=== PATIENT | female | born 1945 | race Caucasian/White ===

== ENCOUNTER 2018-06-13 19:53 | Emergency (ER) | payer OTHER ==
[~2018-06-13] VITALS: Ht 162.6 cm; Wt 72.6 kg
== END 2018-06-13 22:29 | disposition home or self-care (01) ==
LOC: ER 19:53
DX: I16.0 Hypertensive urgency (principal); I10 Essential (primary) hypertension

== ENCOUNTER 2018-06-16 23:31 | Emergency (ER) | payer OTHER ==
[~2018-06-16] VITALS: Ht 157.5 cm; Wt 75.3 kg
[2018-06-17] MEDS ORDERED: NIFEDIPINE ER30 M1 PO (02:12)
== END 2018-06-17 02:12 | disposition home or self-care (01) ==
LOC: ER 23:31
DX: I10 Essential (primary) hypertension (principal)

== ENCOUNTER 2018-07-07 18:14 | Emergency (ER) | payer OTHER ==
[~2018-07-07] VITALS: Ht 157.5 cm; Wt 79.4 kg
[~2018-07-07 18:14] MED LIST: NIFEDIPINE ER30 M1 PO
== END 2018-07-07 20:47 | disposition home or self-care (01) ==
LOC: ER 18:14
DX: K43.9 Ventral hernia without obstruction or gangrene (principal)

== ENCOUNTER 2019-01-24 20:32 | Emergency (ER) | payer OTHER ==
[~2019-01-24] VITALS: Ht 157.5 cm; Wt 70.3 kg
[2019-01-24] MEDS ORDERED: SYNTHROID75 MCG (20:44)
== END 2019-01-24 22:53 | disposition home or self-care (01) ==
LOC: ER 20:32
DX: N39.0 Urinary tract infection, site not specified (principal)

== ENCOUNTER → 2019-07-16 | Emergency (ER) | payer OTHER ==
[~2019-07-16] MED LIST changes: +SYNTHROID75 MCG
== END | disposition left against medical advice (07) ==
LOC: ER 23:05
DX: Z53.20 Procedure and treatment not carried out because of patient's decision for unspecified reasons (principal)

== ENCOUNTER 2021-09-11 00:08 | Emergency (ER) | payer OTHER ==
[~2021-09-11] VITALS: Ht 157.5 cm; Wt 75.3 kg
== END 2021-09-11 09:30 | disposition left against medical advice (07) ==
LOC: ER 00:08
DX: R10.84 Generalized abdominal pain (principal); K43.9 Ventral hernia without obstruction or gangrene; K57.90 Diverticulosis of intestine, part unspecified, without perforation or abscess without bleeding; I10 Essential (primary) hypertension

== ENCOUNTER 2022-02-19 08:29 | Emergency (ER) | payer OTHER ==
[~2022-02-19] VITALS: Ht 162.6 cm; Wt 72.6 kg
[~2022-02-19 08:29] MED LIST changes: +BENADRYL25 MG; +MOTRIN IB200 M1 PO; +NORVASC5 MG PO; +PEPCID AC20 MG PO
== END 2022-02-19 13:04 | disposition home or self-care (01) ==
LOC: ER 08:29
DX: I82.409 Acute embolism and thrombosis of unspecified deep veins of unspecified lower extremity (principal); Z20.822 Contact with and (suspected) exposure to COVID-19; I10 Essential (primary) hypertension; E03.9 Hypothyroidism, unspecified

== ENCOUNTER 2022-04-12 11:28 | Outpatient (CLI) | payer OTHER | END 2022-04-12 11:31 | disposition home or self-care (01) | LOC: SONOGRAMA 11:28 | PROVIDERS: ATTEND Internal Medicine Endocrinology, Diabetes & Metabolism | DX: E04.9 Nontoxic goiter, unspecified (principal); E04.1 Nontoxic single thyroid nodule ==

== ENCOUNTER 2023-04-25 18:43 | Inpatient (IN) | payer OTHER ==
[~2023-04-25] VITALS: Ht 162.6 cm; Wt 68.0 kg
--- NOTE | 2023-04-25 19:13 | NUR ---
PTE ALERTA Y ORIENTADA X 3 ESFERAS QUIEN REFIERE SANGRADO RECTAL EXCESIVO DESDE HACE 2 HRS.PTE UTILIZANDO XARELTO.AL MOMENTO NIEGA OTROS SINTOMAS.
[2023-04-25] MEDS ORDERED: EVISTA60 MG (19:17)
[2023-04-25] MEDS ORDERED: CHLORTHALIDONE25 MG (19:17)
[2023-04-25] MEDS ORDERED: PRAVASTATIN SOD10 MG (19:17)
[2023-04-25] MEDS ORDERED: CILOSTAZOL50 MG (19:18)
[2023-04-25] MEDS ORDERED: XARELTO2.5 MG (19:18)
[2023-04-25] MEDS ORDERED: MELOXICAM5 MG (19:18)
--- NOTE | 2023-04-25 20:19 | NUR ---
PACIENTE EVALUADA POR SIM CAMACHO QUIEN ORDENA TRATAMIENTO. SE ORIENTA PACIENTE SOBRE TRATAMIENTO QUIEN REFIERE ENTENDER. SE CAROLA MUESTRAS DE LABORATORIO BAJO MEDIDAS ASEPTICAS. SE MANTIENE PACIENTE EN JENN BAJA, BARANDAS ELEVADAS POR PRECAUCION.
[2023-04-25 20:25] LABS: HEMATOCRIT 27.6 % (36.0-45.00); HEMOGLOBIN 8.8 g/dL (12.0-15.00); MEAN CELL VOLUME 96.7 fL (80.00-100.00); MEAN CORPUSCULAR HEMOGLOBIN 30.8 pg (27.00-32.0); PLATELET COUNT 184 K/uL (150-450); RED BLOOD COUNT 2.85 M/uL (4.00-6.00); RED CELL DISTRIBUTION WIDTH 15.1 % (11.5-14.5)
[2023-04-25 20:38] LABS: INR 1.03; PARTIAL THROMBOPLASTIN TIME 22.9 SECONDS (22.0-34.0); PROTHROMBIN TIME 10.8 SECONDS (9.0-11.5)
[2023-04-25 20:40] LABS: CALCIUM 8.6 mg/dL (8.5-10.1); CREATININE SERUM 2.4 mg/dL (0.55-1.02); GFR 19.47; POTASSIUM 5.33 mEq/L (3.5-5.1)
--- NOTE | 2023-04-25 23:38 | NUR ---
SE RECIBE PACIENTE ALERTA Y ORIENTADA X 3 ESFERAS EN CAMA EN COMPANIA DE FAMILIAR. PRESENTANDO BUEN PATRON RESPIRATORIO. RECIBIENDO IV'S 0.9NSS BAJANDO A 100ML/HR AREA DE VENOPUNCION MEGAN DE EDEMA Y ERITEMA. PENDIENTE CT ABDOMEN/PELVICO PO A LA 1AM. PENDIENTE RE-EVALUACION MEDICA.
--- NOTE | 2023-04-26 07:04 | NUR ---
SE RECIBE PTE ALERTA Y OREINTADA X3 SE MANTIENE BAJO OBSERVACION POR CAMBIOS SIGNIFICATIVOS
[2023-04-26 07:34] LABS: HEMATOCRIT 26.2 % (36.0-45.00); MEAN CELL VOLUME 96.9 fL (80.00-100.00); MEAN CORPUSCULAR HGB CONC 32.2 g/dl (32.0-36.0); PLATELET COUNT 176 K/uL (150-450); RED CELL DISTRIBUTION WIDTH 14.8 % (11.5-14.5)
[2023-04-26 07:42] LABS: HEMOGLOBIN 8.4 g/dL (12.0-15.00); MEAN CORPUSCULAR HEMOGLOBIN 31.1 pg (27.00-32.0)
--- NOTE | 2023-04-26 15:25 | NUR ---
SE RECIBE PTE ALERTA Y ORIENTADA EN CAMA BAJA CON BARANDAS ELEVADAS POR SEGURIDAD. SE OBSERVA CON BUEN PATRON RESPIRATORIO. CANALIZADA EN PERIFERAL LT CON ANGIOS #18 Y #20 PATENTE. AREA DE VENOPUNCION MEGAN DE EDEMA Y ERITEMA. RECIBIENDO 0.9NSS 1000ML BAJANDO 125ML/HR Y DRIP DE PROTONIX 80MG/100ML BAJANDO 10ML/HR. PEND CONS. DR QUENTIN RAO
[2023-04-26 18:52] LABS: ABG PH 7.362 (7.35-7.45); ABG PO2 88.6 mmHg (80-100); ABG pCO2 27.6 mmHg (35-45); BASE EXCESS -8.4 mmol/l; BICARBONATE 15.3 mmol/l (23-25); SaO2 96.1 %; Tco2 16.1 mmol/l
[2023-04-26 18:56] LABS: INR 1.01; PARTIAL THROMBOPLASTIN TIME 24.3 SECONDS (22.0-34.0); PROTHROMBIN TIME 10.6 SECONDS (9.0-11.5)
[2023-04-26 18:57] LABS: MAGNESIUM 2.1 mg/dL (1.8-2.4); PHOSPHOROUS 2.8 mg/dL (2.5-4.9)
[2023-04-26 18:59] LABS: allen test SATISFACTORY; o2 21 %; puncture site RADIAL RIGHT
[2023-04-27 07:30] LABS: URINE APPEARANCE Clear; URINE BILIRRUBIN Negative (NEGATIVE); URINE BLOOD Negative; URINE COLOR Yellow; URINE GLUCOSE Negative (NEGATIVE); URINE LEUKOCYTE Trace; URINE NITRATE Negative; URINE PROTEIN Negative (NEGATIVE); URINE UROBILINOGEN 0.2 E.U./dl
[2023-04-27 07:32] LABS: URINE BACTERIA 8.8 uL (0.0-1933); URINE EPITHELIAL CELLS 6.7 uL (0.0-38.8)
[2023-04-27 16:03] LABS: FERRITIN 100.2 NG/ML (8-252)
[2023-04-28 11:40] LABS: HEMATOCRIT 28.7 % (36.0-45.00); HEMOGLOBIN 9.3 g/dL (12.0-15.00); MEAN CELL VOLUME 93.7 fL (80.00-100.00); MEAN CORPUSCULAR HEMOGLOBIN 30.3 pg (27.00-32.0); MEAN CORPUSCULAR HGB CONC 32.4 g/dl (32.0-36.0); PLATELET COUNT 159 K/uL (150-450); RED BLOOD COUNT 3.06 M/uL (4.00-6.00)
[2023-04-28 11:58] LABS: ALBUMIN 3.5 gm/dL (3.4-5.0); CALCIUM 8.6 mg/dL (8.5-10.1); CREATININE SERUM 1.11 mg/dL (0.55-1.02); GFR 47.42; PHOSPHOROUS 2.9 mg/dL (2.5-4.9); POTASSIUM 4.34 mEq/L (3.5-5.1)
[2023-04-29 05:22] LABS: HEMATOCRIT 37.7 % (36.0-45.00); HEMOGLOBIN 12.6 g/dL (12.0-15.00); MEAN CELL VOLUME 91.1 fL (80.00-100.00); MEAN CORPUSCULAR HEMOGLOBIN 30.4 pg (27.00-32.0); MEAN CORPUSCULAR HGB CONC 33.4 g/dl (32.0-36.0); PLATELET COUNT 162 K/uL (150-450); RED BLOOD COUNT 4.14 M/uL (4.00-6.00); RED CELL DISTRIBUTION WIDTH 17.1 % (11.5-14.5)
[2023-04-29 15:07] LABS: hgb f 0 % (0.0-2.0); hgb s 0 % (0.0)
[2023-04-30 08:26] LABS: ALBUMIN 3.4 gm/dL (3.4-5.0); BILIRUBIN TOTAL 0.46 mg/dL (0.3-1.2); CALCIUM 8.5 mg/dL (8.5-10.1); CREATININE SERUM 1.18 mg/dL (0.55-1.02); GFR 44.18; GLOBULINA 3.1 G/DL (2.4-3.5); MAGNESIUM 1.7 mg/dL (1.8-2.4); PHOSPHOROUS 3.5 mg/dL (2.5-4.9); POTASSIUM 3.65 mEq/L (3.5-5.1); TOTAL PROTEIN 6.5 gm/dL (6.4-8.2)
[2023-05-02 06:24] LABS: HEMATOCRIT 31.1 % (36.0-45.00); HEMOGLOBIN 10.7 g/dL (12.0-15.00); MEAN CELL VOLUME 90.6 fL (80.00-100.00); MEAN CORPUSCULAR HEMOGLOBIN 31.2 pg (27.00-32.0); MEAN CORPUSCULAR HGB CONC 34.4 g/dl (32.0-36.0); PLATELET COUNT 136 K/uL (150-450); RED BLOOD COUNT 3.43 M/uL (4.00-6.00); RED CELL DISTRIBUTION WIDTH 16.6 % (11.5-14.5)
[2023-05-02 06:54] LABS: ALBUMIN 3.2 gm/dL (3.4-5.0); BILIRUBIN TOTAL 0.32 mg/dL (0.3-1.2); CALCIUM 8.5 mg/dL (8.5-10.1); CREATININE SERUM 0.97 mg/dL (0.55-1.02); GFR 55.4; GLOBULINA 2.9 G/DL (2.4-3.5); MAGNESIUM 2.1 mg/dL (1.8-2.4); PHOSPHOROUS 2.9 mg/dL (2.5-4.9); POTASSIUM 3.79 mEq/L (3.5-5.1); TOTAL PROTEIN 6.1 gm/dL (6.4-8.2)
[2023-05-02 19:06] LABS: g6pd quant 256 (127-427); rbc 2.45 x10E6/uL (3.77-5.28)
== END 2023-05-02 16:59 | disposition home or self-care (01) | DRG 378 ==
LOC: ER 18:44 → SEC-K 04-26 16:58 → MEDI 04-26 16:58
PROVIDERS: General Practice; Internal Medicine Hematology & Oncology; Internal Medicine Nephrology; Nurse Practitioner Family; ADMIT Internal Medicine; ATTEND Internal Medicine
PROC: 30233N1 Transfusion of Nonautologous Red Blood Cells into Peripheral Vein, Percutaneous Approach (ICD-10-PCS; 2023-04-27)
PROC: 0DJD8ZZ Inspection of Lower Intestinal Tract, Via Natural or Artificial Opening Endoscopic (ICD-10-PCS; principal; 2023-05-02)
DX: K57.31 Diverticulosis of large intestine without perforation or abscess with bleeding (principal); N17.9 Acute kidney failure, unspecified; N18.4 Chronic kidney disease, stage 4 (severe); T45.511A Poisoning by anticoagulants, accidental (unintentional), initial encounter; K64.0 First degree hemorrhoids; D63.1 Anemia in chronic kidney disease; I12.9 Hypertensive chronic kidney disease with stage 1 through stage 4 chronic kidney disease, or unspecified chronic kidney disease; E03.9 Hypothyroidism, unspecified; E78.49 Other hyperlipidemia; Z86.718 Personal history of other venous thrombosis and embolism

== ENCOUNTER 2025-04-10 15:06 | Emergency (ER) | payer OTHER ==
[~2025-04-10] VITALS: Ht 157.5 cm; Wt 72.6 kg
[~2025-04-10 15:06] MED LIST changes: +CHLORTHALIDONE25 MG; +CILOSTAZOL50 MG; +EVISTA60 MG; +MELOXICAM5 MG; +PRAVASTATIN SOD10 MG; +XARELTO2.5 MG
[2025-04-10 15:09] VITALS: BP 149/58; O2SAT 98
[2025-04-10] MEDS ORDERED: 0.9 % SODIUM CHLORIDE 500 ML IV STA (16:03)
[2025-04-10] MEDS ORDERED: FAMOTIDINE/PF 20 MG/2 ML VIAL IV STA (16:04)
[2025-04-10] MEDS ORDERED: ONDANSETRON HCL 2 MG/ML VIAL IV STA (16:04)
[2025-04-10] MEDS ORDERED: ONDANSETRON HCL 2 MG/ML VIAL ONE (16:29)
[2025-04-10] MEDS ORDERED: FAMOTIDINE/PF 20 MG/2 ML VIAL ONE (16:30)
[2025-04-10 17:46] LABS: BASO % 0.9 % (0.1-1.2); EOS # 0.08 (0.04-0.54); EOS % 1.2 % (0.7-7.0); LYMPH # 1.80 (1.18-3.74); LYMPH % 27.5 % (19.3-53.1); MEAN PLATELET VOLUME 11.10 fl (9.4-12.4); MONO # 0.67 (0.24-0.82); MONO % 10.2 % (4.7-12.5); NEUT # 3.86 (1.56-6.13); NEUT % 59.0 % (34.0-71.1); RED CELL DISTRIBUTION WIDTH 14.3 % (11.6-14.4)
[2025-04-10 18:15] LABS: ALT/SGPT 18.0 U/L (12-78); AST/SGOT 15.0 U/L (15-37); BILIRUBIN TOTAL 0.45 mg/dL (0.3-1.2); BILIRUBIN,CONJUGATED 0.13 mg/dL (0.0-0.2); BUN CREA RATIO 23.0 (7.0-25.0); CREATININE SERUM 1.86 mg/dL (0.55-1.02); GFR 26.0; GLUCOSE FASTING 102.0 mg/dL (65-100); OSMOLALITY SERUM 290.0 MOSM/KG (275-295)
== END 2025-04-10 19:47 | disposition home or self-care (01) ==
LOC: ER 15:06
PROVIDERS: General Practice
DX: K52.9 Noninfective gastroenteritis and colitis, unspecified (principal); I10 Essential (primary) hypertension
CPT/HCPCS: 36415; 96365; 96366; 99282; J2405; J3490